=== PATIENT | male | born 1975 | race Caucasian/White ===

== ENCOUNTER → 2016-08-17 | Outpatient (CLI) | payer OTHER ==
[2016-08-17 13:44] LABS: BASO # 0.1 K/mm3 (0.0-0.2); BASO % 1.2 % (0.0-1.0); EOS # 0.2 K/mm3 (0.0-0.50); EOS % 3.8 % (0.0-3.0); LARGE UNSTAINED CELL # 0.1 K/mm3 (0.0-0.4); LARGE UNSTAINED CELL % 2.8 % (0.0-4.0); LYMPH # 1.7 K/mm3 (1.5-4.5); MEAN CORPUSCULAR HGB CONC 35.8 g/dl (32.0-36.5); MEAN CORPUSCULAR VOLUME 92.1 fl (80.0-96.0); MONO # 0.3 K/mm3 (0.0-0.8); MONO % 6.3 % (0.0-5.0); NEUTROPHILS # 2.4 K/mm3 (1.8-7.7); NEUTROPHILS % 50.9 % (36.0-66.0); PLATELET COUNT, AUTOMATED 199 k/mm3 (150-450); RED CELL DISTRIBUTION WIDTH 12.5 % (11.5-14.5); WHITE BLOOD COUNT 4.8 K/mm3 (4.0-10.0)
[2016-08-17 14:00] LABS: VITAMIN B12 LEVEL 437 PG/ML (247-911)
[2016-08-17 14:26] LABS: ALBUMIN/GLOBULIN RATIO 1.33 (1.00-1.93); ALKALINE PHOSPHATASE 53 U/L (45-117); ALT/SGPT 25 U/L (12-78); ANION GAP 7 MEQ/L (8-16); AST/SGOT 20 U/L (15-37); BLOOD UREA NITROGEN 20 MG/DL (7-18); CALCIUM LEVEL 8.7 MG/DL (8.5-10.1); CARBON DIOXIDE LEVEL 28 MEQ/L (21-32); CHLORIDE LEVEL 107 MEQ/L (98-107); CREATININE FOR GFR 1.06 MG/DL (0.70-1.30); FERRITIN 36 NG/ML (26-388); GLOMERULAR FILTRATION RATE > 60.0 (>60); GLUCOSE, FASTING 103 MG/DL (70-105); PERCENT SATURATION 34.9 % (19.7-37.4); SODIUM LEVEL 142 MEQ/L (136-145); TOTAL IRON BINDING CAPACITY 278 UG/DL (250-450)
== END ==
LOC: M WUC 09:11
PROVIDERS: ATTEND Family Medicine
DX: D72.819 Decreased white blood cell count, unspecified (principal); K27.9 Peptic ulcer, site unspecified, unspecified as acute or chronic, without hemorrhage or perforation; I10 Essential (primary) hypertension

== ENCOUNTER → 2017-05-06 | Outpatient (CLI) | payer OTHER ==
[2017-05-06 16:19] LABS: BASO # 0.1 10^3/uL (0.0-0.2); BASO % 1.1 % (0.0-1.0); EOS # 0.2 10^3/uL (0.0-0.50); EOS % 2.6 % (0.0-3.0); HEMATOCRIT 41.5 % (42.0-52.0); HEMOGLOBIN 14.4 g/dl (14.0-18.0); IMMATURE GRANULOCYTE % 0.5 % (0-3.0); LYMPH # 1.8 10^3/uL (1.5-4.5); LYMPH % 29.7 % (24.0-44.0); MEAN CORPUSCULAR HEMOGLOBIN 31.5 pg (27.0-33.0); MEAN CORPUSCULAR HGB CONC 34.7 g/dl (32.0-36.5); MEAN CORPUSCULAR VOLUME 90.8 fl (80.0-96.0); MONO # 0.5 10^3/uL (0.0-0.8); MONO % 7.6 % (0.0-5.0); NEUTROPHILS # 3.6 10^3/uL (1.8-7.7); NEUTROPHILS % 58.5 % (36.0-66.0); PLATELET COUNT, AUTOMATED 206 10^3/uL (150-450); RED BLOOD COUNT 4.57 10^6/uL (4.30-6.10); RED CELL DISTRIBUTION WIDTH 12.4 % (11.5-14.5); WHITE BLOOD COUNT 6.2 10^3/uL (4.0-10.0)
[2017-05-06 16:31] LABS: ALBUMIN 4.2 GM/DL (3.2-5.2); ALBUMIN/GLOBULIN RATIO 1.35 (1.00-1.93); ALKALINE PHOSPHATASE 49 U/L (45-117); ALT/SGPT 20 U/L (12-78); ANION GAP 5 MEQ/L (8-16); AST/SGOT 17 U/L (7-37); BLOOD UREA NITROGEN 16 MG/DL (7-18); C REACTIVE PROTEIN QUANTITATIV < 0.30 MG/DL (0.00-0.30); CALCIUM LEVEL 8.8 MG/DL (8.5-10.1); CARBON DIOXIDE LEVEL 31 MEQ/L (21-32); CHLORIDE LEVEL 104 MEQ/L (98-107); CHOLESTEROL LEVEL 156 MG/DL (<200); CHOLESTEROL RISK RATIO 2.476 (<5); CREATININE FOR GFR 0.89 MG/DL (0.70-1.30); GLOMERULAR FILTRATION RATE > 60.0 (>60); GLUCOSE, FASTING 88 MG/DL (70-100); HDL CHOLESTEROL 63 MG/DL (>40); LDL CHOLESTEROL 82.2 MG/DL (<100); NON-HDL-C 93 MG/DL; POTASSIUM SERUM 4.8 MEQ/L (3.5-5.1); SODIUM LEVEL 140 MEQ/L (136-145); TOTAL PROTEIN 7.3 GM/DL (6.4-8.2); TRIGLYCERIDES LEVEL 54 MG/DL (<150)
[2017-05-06 16:40] LABS: PTH INTACT 29.1 PG/ML (18.5-88.0); TOTAL 25(OH) VITAMIN D 57.2 NG/ML (30.0-100.0)
== END ==
LOC: M WUC 12:13
DX: D72.819 Decreased white blood cell count, unspecified (principal); E55.9 Vitamin D deficiency, unspecified

== ENCOUNTER → 2017-10-10 | Outpatient (CLI) | payer OTHER | LOC: M RAD 16:16 | DX: N50.3 Cyst of epididymis (principal); N43.3 Hydrocele, unspecified | CPT/HCPCS: 76870 ==

== ENCOUNTER → 2018-01-20 | Outpatient (CLI) | payer OTHER ==
[2018-01-20 12:43] LABS: APPEARANCE, URINE CLEAR (CLEAR); BACTERIA, URINE AUTO NEGATIVE (NEGATIVE); BILIRUBIN, URINE AUTO NEGATIVE (NEGATIVE); BLOOD, URINE BLOOD NEGATIVE (NEGATIVE); COLOR, URINE YELLOW (YELLOW); GLUCOSE, URINE (UA) AUTO NEGATIVE (NEGATIVE); KETONE, URINE AUTO NEGATIVE (NEGATIVE); LEUKOCYTE ESTERASE, URINE AUTO NEGATIVE (NEGATIVE); NITRITE, URINE AUTO NEGATIVE (NEGATIVE); PROTEIN, URINE AUTO NEGATIVE (NEGATIVE); RBC, URINE AUTO 0 /HPF (0-3); SPECIFIC GRAVITY URINE AUTO 1.021 (1.002-1.035); SQUAMOUS EPITHELIAL CELL UR AU 0 /HPF (0-6); UROBILINOGEN, URINE AUTO 0.2 mg/dL (0.0-2.0); WBC, URINE AUTO 1 /HPF (0-3)
[2018-01-20 13:01] LABS: ALBUMIN 4.3 GM/DL (3.2-5.2); ALBUMIN/GLOBULIN RATIO 1.43 (1.00-1.93); ALKALINE PHOSPHATASE 50 U/L (45-117); ALT/SGPT 27 U/L (12-78); ANION GAP 6 MEQ/L (8-16); AST/SGOT 21 U/L (7-37); BLOOD UREA NITROGEN 18 MG/DL (7-18); CALCIUM LEVEL 9.1 MG/DL (8.5-10.1); CARBON DIOXIDE LEVEL 31 MEQ/L (21-32); CHLORIDE LEVEL 104 MEQ/L (98-107); CHOLESTEROL LEVEL 160 MG/DL (<200); CHOLESTEROL RISK RATIO 2.909 (<5); CREATININE FOR GFR 1.12 MG/DL (0.70-1.30); FREE T4 0.98 NG/DL (0.76-1.46); GLOMERULAR FILTRATION RATE > 60.0 (>60); GLUCOSE, FASTING 89 MG/DL (70-100); HDL CHOLESTEROL 55 MG/DL (>40); LDL CHOLESTEROL 97 MG/DL (<100); NON-HDL-C 105 MG/DL; POTASSIUM SERUM 4.8 MEQ/L (3.5-5.1); SODIUM LEVEL 141 MEQ/L (136-145); TOTAL PROTEIN 7.3 GM/DL (6.4-8.2); TRIGLYCERIDES LEVEL 39 MG/DL (<150)
[2018-01-20 13:02] LABS: BASO # 0.1 10^3/uL (0.0-0.2); BASO % 1.8 % (0.0-1.0); EOS # 0.5 10^3/uL (0.0-0.50); EOS % 9.1 % (0.0-3.0); HEMATOCRIT 42.3 % (42.0-52.0); HEMOGLOBIN 14.9 g/dl (13.5-17.5); IMMATURE GRANULOCYTE % 0.4 % (0-3.0); LYMPH # 1.3 10^3/uL (1.5-4.5); LYMPH % 25.5 % (24.0-44.0); MEAN CORPUSCULAR HEMOGLOBIN 31.4 pg (27.0-33.0); MEAN CORPUSCULAR HGB CONC 35.2 g/dl (32.0-36.5); MEAN CORPUSCULAR VOLUME 89.1 fl (80.0-96.0); MONO # 0.4 10^3/uL (0.0-0.8); MONO % 7.7 % (0.0-5.0); NEUTROPHILS # 2.8 10^3/uL (1.8-7.7); NEUTROPHILS % 55.5 % (36.0-66.0); PLATELET COUNT, AUTOMATED 227 10^3/uL (150-450); RED BLOOD COUNT 4.75 10^6/uL (4.30-6.10); RED CELL DISTRIBUTION WIDTH 12.2 % (11.5-14.5); WHITE BLOOD COUNT 5.1 10^3/uL (4.0-10.0)
[2018-01-20 13:43] LABS: MALB URINE SIEMENS 21.1 MG/L; MAU/CREAT RATIO 9.3 MCG/MG (0.0-30.0)
[2018-01-24 00:06] LABS: QuantiFERON-TB Gold Plus Negative (Negative)
== END ==
LOC: M WUC 09:37
DX: D72.819 Decreased white blood cell count, unspecified (principal); I10 Essential (primary) hypertension; E78.5 Hyperlipidemia, unspecified; R76.11 Nonspecific reaction to tuberculin skin test without active tuberculosis
CPT/HCPCS: 84443

== ENCOUNTER → 2018-09-26 | Outpatient (CLI) | payer OTHER ==
[2018-09-26 13:32] LABS: BASO # 0.1 10^3/uL (0.0-0.2); BASO % 1.5 % (0.0-1.0); EOS # 0.4 10^3/uL (0.0-0.50); EOS % 6.8 % (0.0-3.0); HEMOGLOBIN 14.1 g/dl (13.5-17.5); LYMPH # 2.1 10^3/uL (1.5-4.5); LYMPH % 37.6 % (24.0-44.0); MEAN CORPUSCULAR HEMOGLOBIN 31.5 pg (27.0-33.0); MEAN CORPUSCULAR HGB CONC 35.3 g/dl (32.0-36.5); MEAN CORPUSCULAR VOLUME 89.3 fl (80.0-96.0); MONO # 0.5 10^3/uL (0.0-0.8); MONO % 8.4 % (0.0-5.0); NEUTROPHILS # 2.5 10^3/uL (1.8-7.7); NEUTROPHILS % 45.5 % (36.0-66.0); PLATELET COUNT, AUTOMATED 215 10^3/uL (150-450); RED BLOOD COUNT 4.48 10^6/uL (4.30-6.10); WHITE BLOOD COUNT 5.5 10^3/uL (4.0-10.0)
[2018-09-26 13:39] LABS: ALBUMIN 3.9 GM/DL (3.2-5.2); ALT/SGPT 24 U/L (12-78); BILIRUBIN,TOTAL 0.5 MG/DL (0.2-1.0); BLOOD UREA NITROGEN 19 MG/DL (7-18); CALCIUM LEVEL 8.8 MG/DL (8.5-10.1); CARBON DIOXIDE LEVEL 30 MEQ/L (21-32); CHLORIDE LEVEL 107 MEQ/L (98-107); CHOLESTEROL LEVEL 157 MG/DL (<200); CHOLESTEROL RISK RATIO 3.078 (<5); GLOMERULAR FILTRATION RATE > 60.0 (>60); GLUCOSE, FASTING 96 MG/DL (70-100); HDL CHOLESTEROL 51 MG/DL (>40); LDL CHOLESTEROL 92 MG/DL (<100); NON-HDL-C 106 MG/DL; POTASSIUM SERUM 4.5 MEQ/L (3.5-5.1); SODIUM LEVEL 142 MEQ/L (136-145); TRIGLYCERIDES LEVEL 69 MG/DL (<150)
[2018-09-26 14:25] LABS: HEMOGLOBIN A1c 5.4 %
== END ==
LOC: M WUC 08:27
PROVIDERS: ATTEND Family Medicine
DX: D72.819 Decreased white blood cell count, unspecified (principal); E78.5 Hyperlipidemia, unspecified; I10 Essential (primary) hypertension

== ENCOUNTER → 2018-11-11 | Outpatient (CLI) | payer OTHER ==
--- NOTE | 2018-11-11 12:20 | REP ---
Right thumb series: Four views. History: Hyperextension injury. Findings: Four views of the right thumb demonstrate a fracture of the distal phalanx which appears to extend to the IP joint. No displacement. There is associated swelling. Impression: Distal phalangeal fracture right thumb. Electronically Signed by John Martines MD 11/11/2018 12:11 P
== END ==
LOC: M WUC 10:38
PROVIDERS: ATTEND Physician Assistant
DX: S62.524A Nondisplaced fracture of distal phalanx of right thumb, initial encounter for closed fracture (principal); X58.XXXA Exposure to other specified factors, initial encounter; Y92.9 Unspecified place or not applicable

== ENCOUNTER 2019-07-04 09:50 | Emergency (ER) | payer OTHER ==
[~2019-07-04] VITALS: Ht 170.2 cm; Wt 77.7 kg
[2019-07-04] MEDS ORDERED: LISI10TA4 (09:55)
[2019-07-04] MEDS ORDERED: OMEP-221 (09:55)
[2019-07-04 10:13] LABS: BASO # 0.1 10^3/uL (0.0-0.2); EOS # 0.2 10^3/uL (0.0-0.5); EOS % 2.8 % (0.0-3.0); HEMATOCRIT 45.4 % (42.0-52.0); HEMOGLOBIN 15.6 g/dl (13.5-17.5); LYMPH # 2.2 10^3/uL (1.5-5.0); LYMPH % 29.7 % (24.0-44.0); MEAN CORPUSCULAR HGB CONC 34.4 g/dl (32.0-36.5); MEAN CORPUSCULAR VOLUME 90.3 fl (80.0-96.0); MONO # 0.6 10^3/uL (0.0-0.8); NEUTROPHILS # 4.2 10^3/uL (1.5-8.5); NEUTROPHILS % 58.4 % (36.0-66.0); PLATELET COUNT, AUTOMATED 215 10^3/uL (150-450); RED BLOOD COUNT 5.03 10^6/uL (4.30-6.10); WHITE BLOOD COUNT 7.2 10^3/uL (4.0-10.0)
[2019-07-04] MEDS ORDERED: GI COCKTAIL 50ML BTL(HYOSCYAMINE/MAALOX/LIDOCAINE VISCOUS)(1:3:1) PO ONE (10:30)
[2019-07-04] MEDS ORDERED: ASPIRIN 325 MG TAB PO ONE (10:30)
[2019-07-04 10:54] LABS: ALBUMIN 4.4 GM/DL (3.2-5.2); ALT/SGPT 26 U/L (12-78); BILIRUBIN,DIRECT 0.2 MG/DL (0.0-0.2); BILIRUBIN,TOTAL 0.9 MG/DL (0.2-1.0); BLOOD UREA NITROGEN 22 MG/DL (7-18); CALCIUM LEVEL 9.2 MG/DL (8.5-10.1); CARBON DIOXIDE LEVEL 28 MEQ/L (21-32); CHLORIDE LEVEL 103 MEQ/L (98-107); CK-MB VALUE MASS 2.6 NG/ML (<3.6); CPK CREATINE PHOSPHOKINASE 185 U/L (39-308); CREATININE FOR GFR 1.07 MG/DL (0.70-1.30); GLOMERULAR FILTRATION RATE > 60.0 (>60); GLUCOSE, FASTING 88 MG/DL (70-100); MB/CK RELATIVE INDEX 1.41 (< OR =4); POTASSIUM SERUM 4.1 MEQ/L (3.5-5.1); SODIUM LEVEL 138 MEQ/L (136-145); TOTAL PROTEIN 7.8 GM/DL (6.4-8.2); TROPONIN I < 0.02 NG/ML (< 0.10)
--- NOTE | 2019-07-04 11:04 | REP ---
Clinical: Chest pain . Comparison: 05/06/2017 . Findings: The mediastinum and cardiac silhouette are stable and within normal limits for portable technique. The lung dunlap are clear without acute consolidation, effusion, or pneumothorax. Skeletal structures are intact. Impression: No acute cardiopulmonary process appreciated. Electronically Signed by Tanner Jung MD 07/04/2019 10:57 A
[2019-07-04] MEDS ORDERED: ISOVUE-370 76% 100ML VIAL As Ordered ONE (11:18)
--- NOTE | 2019-07-04 11:50 | REP ---
Clinical: Acute chest pain. Technique: Axial contrast enhanced images from the thoracic inlet to the upper abdomen using 75 ml Isovue 370 intravenous contrast material with coronal and sagittal re-formations. Findings: Satisfactory enhancement of the pulmonary vasculature is achieved and no filling defects are identified to suggest pulmonary embolus. Thoracic aorta is normal caliber without aneurysm or dissection. Heart and pericardium are normal. Bilateral lung dulnap are well aerated and clear without acute pulmonary parenchymal consolidation or atelectasis. No nodule or mass lesion. No pleural effusion/reaction. No pneumothorax. No adenopathy. Impression: No evidence for pulmonary embolus. No acute pleuroparenchymal or mediastinal process. Electronically Signed by Tanner Jung MD 07/04/2019 11:41 A
[2019-07-04 15:53] LABS: CK-MB VALUE MASS 1.6 NG/ML (<3.6); CPK CREATINE PHOSPHOKINASE 144 U/L (39-308); MB/CK RELATIVE INDEX 1.11 (< OR =4); TROPONIN I < 0.02 NG/ML (< 0.10)
[2019-07-04 16:07] VITALS: BP 115/60
--- NOTE | 2019-07-04 19:30 | ECGEPIP ---
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
--- NOTE | 2019-07-05 06:27 | ECGEPIP ---
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
== END 2019-07-04 16:09 | disposition home or self-care (01) ==
LOC: M ED 09:50
DX: R07.89 Other chest pain (principal); I10 Essential (primary) hypertension; Z88.8 Allergy status to other drugs, medicaments and biological substances
CPT/HCPCS: 71045; 71275; 80048; 80076; 82550; 82553; 84443; 84484; 85025; 93005; 93041; 94760; 99285; Q9967

== ENCOUNTER → 2019-07-25 | Outpatient (CLI) | payer OTHER ==
[~2019-07-25] MED LIST: LISI10TA4; OMEP-221
[2019-07-25 17:43] LABS: ALBUMIN 4.1 GM/DL (3.2-5.2); ALT/SGPT 26 U/L (12-78); BILIRUBIN,TOTAL 0.8 MG/DL (0.2-1.0); BLOOD UREA NITROGEN 17 MG/DL (7-18); CALCIUM LEVEL 8.9 MG/DL (8.5-10.1); CARBON DIOXIDE LEVEL 29 MEQ/L (21-32); CHLORIDE LEVEL 105 MEQ/L (98-107); CREATININE FOR GFR 0.95 MG/DL (0.70-1.30); GLOMERULAR FILTRATION RATE > 60.0 (>60); GLUCOSE, FASTING 84 MG/DL (70-100); POTASSIUM SERUM 4.5 MEQ/L (3.5-5.1); SODIUM LEVEL 142 MEQ/L (136-145); TOTAL PROTEIN 7.3 GM/DL (6.4-8.2)
[2019-07-25 17:57] LABS: HEMOGLOBIN A1c 5.5 %
[2019-07-28 10:13] LABS: PTH INTACT 39.7 PG/ML (18.5-88.0)
[2019-07-29 13:07] LABS: H PYLORI SERUM QUANT IgG ABY 0.51 (0.00-0.79); INSULIN LEVEL 4.3 uIU/mL (2.6-24.9)
== END ==
LOC: M WUC 10:02
PROVIDERS: ATTEND Family Medicine
DX: I10 Essential (primary) hypertension (principal); E55.9 Vitamin D deficiency, unspecified; R76.11 Nonspecific reaction to tuberculin skin test without active tuberculosis

== ENCOUNTER → 2020-03-05 | Outpatient (CLI) | payer OTHER ==
[2020-03-05 18:38] LABS: BASO # 0.1 10^3/uL (0.0-0.2); BASO % 1.8 % (0.0-1.0); EOS # 0.2 10^3/uL (0.0-0.5); EOS % 3.3 % (0.0-3.0); HEMATOCRIT 43.3 % (42.0-52.0); HEMOGLOBIN 14.7 g/dl (13.5-17.5); LYMPH # 1.8 10^3/uL (1.5-5.0); LYMPH % 35.7 % (24.0-44.0); MEAN CORPUSCULAR HEMOGLOBIN 31.1 pg (27.0-33.0); MEAN CORPUSCULAR HGB CONC 33.9 g/dl (32.0-36.5); MEAN CORPUSCULAR VOLUME 91.7 fl (80.0-96.0); MONO # 0.4 10^3/uL (0.0-0.8); MONO % 7.8 % (0.0-5.0); NEUTROPHILS # 2.6 10^3/uL (1.5-8.5); NEUTROPHILS % 51.2 % (36.0-66.0); PLATELET COUNT, AUTOMATED 209 10^3/uL (150-450); RED BLOOD COUNT 4.72 10^6/uL (4.30-6.10); WHITE BLOOD COUNT 5.1 10^3/uL (4.0-10.0)
[2020-03-05 18:51] LABS: ALBUMIN 4.3 GM/DL (3.2-5.2); ALT/SGPT 18 U/L (12-78); BILIRUBIN,TOTAL 1.1 MG/DL (0.2-1.0); BLOOD UREA NITROGEN 16 MG/DL (7-18); CALCIUM LEVEL 9.1 MG/DL (8.5-10.1); CARBON DIOXIDE LEVEL 31 MEQ/L (21-32); CHLORIDE LEVEL 103 MEQ/L (98-107); CHOLESTEROL LEVEL 184 MG/DL (<200); CHOLESTEROL RISK RATIO 2.875 (<5); CREATININE FOR GFR 0.99 MG/DL (0.70-1.30); FREE T4 0.97 NG/DL (0.76-1.46); GLOMERULAR FILTRATION RATE > 60.0 (>60); GLUCOSE, FASTING 79 MG/DL (70-100); HDL CHOLESTEROL 64 MG/DL (>40); LDL CHOLESTEROL 108 MG/DL (<100); NON-HDL-C 120 MG/DL; POTASSIUM SERUM 4.5 MEQ/L (3.5-5.1); SODIUM LEVEL 139 MEQ/L (136-145); TOTAL PROTEIN 7.5 GM/DL (6.4-8.2); TRIGLYCERIDES LEVEL 60 MG/DL (<150)
== END ==
LOC: M WUC 13:25
PROVIDERS: ATTEND Family Medicine
DX: D72.819 Decreased white blood cell count, unspecified (principal); E78.5 Hyperlipidemia, unspecified; I10 Essential (primary) hypertension

== ENCOUNTER → 2021-06-19 | Outpatient (CLI) | payer OTHER ==
[~2021-06-19] MED LIST changes: +LISI10TA22; -LISI10TA4; -OMEP-221; +OMEP40CA5
[2021-06-19 13:03] LABS: HEMOGLOBIN A1c 5.2 %
[2021-06-19 13:06] LABS: ALBUMIN 4.1 GM/DL (3.2-5.2); ALT/SGPT 41 U/L (12-78); BILIRUBIN,DIRECT 0.2 MG/DL (0.0-0.2); BILIRUBIN,TOTAL 0.9 MG/DL (0.2-1.0); BLOOD UREA NITROGEN 20 MG/DL (7-18); CALCIUM LEVEL 8.8 MG/DL (8.5-10.1); CARBON DIOXIDE LEVEL 29 MEQ/L (21-32); CHLORIDE LEVEL 105 MEQ/L (98-107); CREATININE FOR GFR 1.17 MG/DL (0.70-1.30); FERRITIN 26 NG/ML (26-388); GLOMERULAR FILTRATION RATE > 60.0 (>60); GLUCOSE, FASTING 99 MG/DL (70-100); NT-PRO BNP 9 PG/ML (<125); POTASSIUM SERUM 4.4 MEQ/L (3.5-5.1); SODIUM LEVEL 139 MEQ/L (136-145); TOTAL PROTEIN 7.2 GM/DL (6.4-8.2)
[2021-06-19 13:07] LABS: PTH INTACT 32.3 PG/ML (18.5-88.0); TOTAL 25(OH) VITAMIN D 33.1 NG/ML (30.0-100.0)
== END ==
LOC: M WUC 09:14
PROVIDERS: ATTEND Family Medicine
DX: E78.5 Hyperlipidemia, unspecified (principal); E55.9 Vitamin D deficiency, unspecified; I10 Essential (primary) hypertension; K27.9 Peptic ulcer, site unspecified, unspecified as acute or chronic, without hemorrhage or perforation; E80.4 Gilbert syndrome

== ENCOUNTER → 2021-11-28 | Outpatient (CLI) | payer OTHER ==
[~2021-11-28] MED LIST changes: +ANUS2.5C2 TOP
[2021-11-28 11:22] LABS: BASO # 0.1 10^3/uL (0.0-0.2); BASO % 1.7 % (0.0-1.0); EOS # 0.3 10^3/uL (0.0-0.5); EOS % 6.2 % (0.0-3.0); HEMATOCRIT 43.4 % (42.0-52.0); HEMOGLOBIN 15.2 g/dl (13.5-17.5); LYMPH # 1.8 10^3/uL (1.5-5.0); LYMPH % 33.3 % (24.0-44.0); MEAN CORPUSCULAR HEMOGLOBIN 32.1 pg (27.0-33.0); MEAN CORPUSCULAR VOLUME 91.6 fl (80.0-96.0); MONO # 0.4 10^3/uL (0.0-0.8); MONO % 8.2 % (2.0-8.0); NEUTROPHILS # 2.7 10^3/uL (1.5-8.5); NEUTROPHILS % 50.4 % (36.0-66.0); PLATELET COUNT, AUTOMATED 231 10^3/uL (150-450); RED BLOOD COUNT 4.74 10^6/uL (4.30-6.10); WHITE BLOOD COUNT 5.3 10^3/uL (4.0-10.0)
[2021-11-28 11:39] LABS: ALBUMIN 4.2 GM/DL (3.2-5.2); ALT/SGPT 26 U/L (12-78); BILIRUBIN,TOTAL 0.9 MG/DL (0.2-1.0); BLOOD UREA NITROGEN 21 MG/DL (7-18); CALCIUM LEVEL 9.2 MG/DL (8.5-10.1); CARBON DIOXIDE LEVEL 31 MEQ/L (21-32); CHLORIDE LEVEL 103 MEQ/L (98-107); CHOLESTEROL LEVEL 173 MG/DL (<200); CHOLESTEROL RISK RATIO 2.932 (<5); CREATININE FOR GFR 1.04 MG/DL (0.70-1.30); GLOMERULAR FILTRATION RATE > 60.0 (>60); GLUCOSE, FASTING 94 MG/DL (70-100); HDL CHOLESTEROL 59 MG/DL (>40); LDL CHOLESTEROL 104 MG/DL (<100); NON-HDL-C 114 MG/DL; POTASSIUM SERUM 4.5 MEQ/L (3.5-5.1); SODIUM LEVEL 137 MEQ/L (136-145); TOTAL PROTEIN 7.7 GM/DL (6.4-8.2); TRIGLYCERIDES LEVEL 50 MG/DL (<150)
[2021-11-29 08:10] LABS: APOLIPOPROTEIN B/A-1 RATIO 0.6 ratio (0.0-0.7)
== END ==
LOC: M WUC 08:52
PROVIDERS: ATTEND Family Medicine
DX: I10 Essential (primary) hypertension (principal); E78.5 Hyperlipidemia, unspecified

== ENCOUNTER → 2022-05-22 | Outpatient (CLI) | payer OTHER ==
[2022-05-22 12:55] LABS: BASO # 0.1 10^3/uL (0.0-0.2); BASO % 1.4 % (0.0-1.0); EOS # 0.3 10^3/uL (0.0-0.5); EOS % 5.9 % (0.0-3.0); HEMATOCRIT 45.3 % (42.0-52.0); HEMOGLOBIN 15.4 g/dl (13.5-17.5); LYMPH # 1.9 10^3/uL (1.5-5.0); LYMPH % 32.4 % (24.0-44.0); MEAN CORPUSCULAR HEMOGLOBIN 31.4 pg (27.0-33.0); MEAN CORPUSCULAR VOLUME 92.4 fl (80.0-96.0); MONO # 0.5 10^3/uL (0.0-0.8); MONO % 8.3 % (2.0-8.0); NEUTROPHILS % 51.7 % (36.0-66.0); PLATELET COUNT, AUTOMATED 231 10^3/uL (150-450); WHITE BLOOD COUNT 5.8 10^3/uL (4.0-10.0)
[2022-05-22 13:01] LABS: HEMATOCRIT 44.7 % (42.0-52.0)
[2022-05-22 13:17] LABS: TOTAL PROTEIN,RANDOM URINE 8.4 MG/DL (0.0-14.0)
[2022-05-22 13:22] LABS: CREATININE,RANDOM URINE 117.5 MG/DL
[2022-05-22 13:31] LABS: ALBUMIN 4.3 G/DL (3.2-5.2); ALKALINE PHOSPHATASE 50 U/L (46-116); ALT/SGPT 21 U/L (7.0-40); AST/SGOT 22 U/L (<34); BILIRUBIN,TOTAL 0.9 MG/DL (0.3-1.2); BLOOD UREA NITROGEN 19 MG/DL (9-23); CALCIUM LEVEL 9.3 MG/DL (8.5-10.1); CARBON DIOXIDE LEVEL 30 MMOL/L (20-31); CHLORIDE LEVEL 102 MMOL/L (98-107); GLOMERULAR FILTRATION RATE > 60.0 (>60); GLUCOSE, FASTING 82 MG/DL (60-100); POTASSIUM SERUM 4.5 MMOL/L (3.5-5.1); PTH INTACT 30.4 PG/ML (18.5-88.0); SODIUM LEVEL 139 MMOL/L (136-145); TOTAL PROTEIN 7.2 G/DL (5.7-8.2); VITAMIN B12 LEVEL 444 PG/ML (211-911)
[2022-05-22 13:32] LABS: TOTAL 25(OH) VITAMIN D 44.8 NG/ML (20.0-100.0)
== END ==
LOC: M WUC 08:27
PROVIDERS: ATTEND Family Medicine
DX: I10 Essential (primary) hypertension (principal); E55.9 Vitamin D deficiency, unspecified; K27.9 Peptic ulcer, site unspecified, unspecified as acute or chronic, without hemorrhage or perforation

== ENCOUNTER → 2022-08-17 | Outpatient (CLI) | payer OTHER ==
[~2022-08-17] MED LIST changes: -LISI10TA22; +LISI10TA22 PO; -OMEP40CA5; +OMEP40CA5 PO; +VITA100093 PO
[2022-08-17 11:28] LABS: BLOOD UREA NITROGEN 16 MG/DL (9-23); CALCIUM LEVEL 9.4 MG/DL (8.5-10.1); CARBON DIOXIDE LEVEL 29 MMOL/L (20-31); CHLORIDE LEVEL 104 MMOL/L (98-107); GLOMERULAR FILTRATION RATE > 60.0 (>60); GLUCOSE, FASTING 95 MG/DL (60-100); POTASSIUM SERUM 4.7 MMOL/L (3.5-5.1); SODIUM LEVEL 139 MMOL/L (136-145)
== END ==
LOC: M EKG 10:19
PROVIDERS: ATTEND Anesthesiology
DX: Z01.818 Encounter for other preprocedural examination (principal)

== ENCOUNTER 2022-08-27 12:17 | Day surgery (SDC) | payer OTHER ==
[~2022-08-27] VITALS: Ht 172.7 cm; Wt 81.6 kg
[~2022-08-27 12:17] MED LIST changes: +ceFAZolin SOD 2 GM in IV 1 EA IV ONE
[2022-08-27] MEDS ORDERED: LR 1,000 ML IV SCH ×2 (12:35→17:55)
[2022-08-27] MEDS ORDERED: ROCURONIUM BROMIDE 50MG/5ML VIAL As Ordered ONE (15:21)
[2022-08-27] MEDS ORDERED: LIDOCAINE 2% 100MG/5ML SDV (FOR ANES.) As Ordered ONE (15:21)
[2022-08-27] MEDS ORDERED: ACETAMINOPHEN 1000MG 100ML IV BAG As Ordered ONE (15:21)
[2022-08-27] MEDS ORDERED: KETOROLAC 60MG 2ML VIAL As Ordered ONE (15:21)
[2022-08-27] MEDS ORDERED: SUGAMMADEX SODIUM 500 MG/5 ML VIAL (BRIDION) As Ordered ONE (15:21)
[2022-08-27] MEDS ORDERED: propofoL 200 MG/20 ML VIAL As Ordered ONE (15:21)
[2022-08-27] MEDS ORDERED: ONDANSETRON 4MG 2ML VIAL As Ordered ONE (15:21)
[2022-08-27] MEDS ORDERED: fentaNYL 100 MCG/2 ML INJECTION As Ordered ONE ×2 (15:22→17:38)
[2022-08-27] MEDS ORDERED: MIDAZOLAM INJ 2MG/2ML VIAL As Ordered ONE (15:22)
[2022-08-27] MEDS ORDERED: SCOPOLAMINE 1MG TRANSDERMAL PATCH As Ordered ONE (16:23)
[2022-08-27] MEDS ORDERED: hydrALAZINE 20MG/ML 1ML VIAL As Ordered ONE (17:11)
[2022-08-27] MEDS ORDERED: oxyCODONE 5MG TAB PO PRN (17:55)
[2022-08-27] MEDS ORDERED: fentaNYL 100 MCG/2 ML INJECTION IV PRN (17:55)
[2022-08-27] MEDS ORDERED: HYDROMORPHONE HCL 0.5 MG/ 0.5 ML SYRINGE IV PRN (17:55)
[2022-08-27] MEDS ORDERED: ONDANSETRON 4MG 2ML VIAL IV PRN (17:55)
[2022-08-27] MEDS ORDERED: NORCO, ANEXSIA 5/325MG TABLET (HYDROcodone/ACETAMINOPHEN) PO PRN (18:10)
[2022-08-27] MEDS ORDERED: METOCLOPRAMIDE INJ 10MG/2ML VIAL IV PRN (18:10)
[2022-08-27] MEDS: PROMETHAZINE 25MG/ML 1ML VIAL IV PRN ×2 (18:20→18:30)
[2022-08-27] MEDS ORDERED: HALOPERIDOL 5MG/ML 1ML VIAL As Ordered ONE (18:47)
[2022-08-27] MEDS ORDERED: diphenhydrAMINE 50MG/ML VIAL IV PRN (19:15)
[2022-08-27] MEDS ORDERED: diphenhydrAMINE 50MG/ML VIAL As Ordered ONE (19:16)
[2022-08-27 22:35] VITALS: BP 135/83; TEMP 97.8; O2SAT 97
== END 2022-08-27 22:38 | disposition home or self-care (01) ==
LOC: M SDC 12:17
PROVIDERS: ATTEND Surgery
DX: K40.30 Unilateral inguinal hernia, with obstruction, without gangrene, not specified as recurrent (principal); I10 Essential (primary) hypertension; Z79.899 Other long term (current) drug therapy; Z88.8 Allergy status to other drugs, medicaments and biological substances; K21.9 Gastro-esophageal reflux disease without esophagitis
CPT/HCPCS: 49650; C1781; J0131; J0360; J1100; J1200; J1885; J2250; J2405; J2550; J2765; J3010; S0020; S2900

== ENCOUNTER → 2023-08-08 | Outpatient (CLI) | payer OTHER ==
[~2023-08-08] MED LIST changes: -ceFAZolin SOD 2 GM in IV 1 EA IV ONE
[2023-08-08 10:17] LABS: BASO # 0.1 10^3/uL (0.0-0.2); BASO % 1.6 % (0.0-1.0); EOS # 0.2 10^3/uL (0.0-0.5); HEMATOCRIT 40.8 % (42.0-52.0); HEMOGLOBIN 14.3 g/dl (13.5-17.5); LYMPH # 1.9 10^3/uL (1.5-5.0); LYMPH % 38.7 % (24.0-44.0); MEAN CORPUSCULAR HEMOGLOBIN 31.3 pg (27.0-33.0); MEAN CORPUSCULAR VOLUME 89.3 fl (80.0-96.0); MONO # 0.5 10^3/uL (0.0-0.8); MONO % 9.2 % (2.0-8.0); NEUTROPHILS # 2.4 10^3/uL (1.5-8.5); NEUTROPHILS % 47.3 % (36.0-66.0); PLATELET COUNT, AUTOMATED 209 10^3/uL (150-450); RED BLOOD COUNT 4.57 10^6/uL (4.30-6.10)
[2023-08-08 10:30] LABS: ALBUMIN 3.9 G/DL (3.2-5.2); ALKALINE PHOSPHATASE 54 U/L (46-116); ALT/SGPT 21 U/L (7.0-40); AST/SGOT 16 U/L (<34); BILIRUBIN,TOTAL 0.8 MG/DL (0.3-1.2); BLOOD UREA NITROGEN 19 MG/DL (9-23); CARBON DIOXIDE LEVEL 30 MMOL/L (20-31); CHLORIDE LEVEL 107 MMOL/L (98-107); CHOLESTEROL LEVEL 155 MG/DL (<200); CREATININE FOR GFR 0.96 MG/DL (0.70-1.30); GLOMERULAR FILTRATION RATE > 60.0 (>60); GLUCOSE, FASTING 102 MG/DL (60-100); LDL CHOLESTEROL 95.4 MG/DL (<100); POTASSIUM SERUM 5.1 MMOL/L (3.5-5.1); PTH INTACT 35.6 PG/ML (18.5-88.0); SODIUM LEVEL 139 MMOL/L (136-145); TOTAL PROTEIN 6.7 G/DL (5.7-8.2); TRIGLYCERIDES LEVEL 48 MG/DL (<150)
[2023-08-08 10:33] LABS: FERRITIN 24.9 NG/ML (10.5-307.3)
[2023-08-08 10:34] LABS: TOTAL 25(OH) VITAMIN D 43.3 NG/ML (20.0-100.0)
== END ==
LOC: M WUC 08:06
PROVIDERS: ATTEND Family Medicine
DX: E78.5 Hyperlipidemia, unspecified (principal); I10 Essential (primary) hypertension; E55.9 Vitamin D deficiency, unspecified

== ENCOUNTER → 2023-08-08 | Outpatient (REF) | payer OTHER | LOC: M SFHCPLAZ 12:40 | PROVIDERS: ATTEND Family Medicine | DX: Z53.9 Procedure and treatment not carried out, unspecified reason (principal) ==

== ENCOUNTER → 2024-01-29 | Outpatient (CLI) | payer OTHER ==
[2024-01-29 11:17] LABS: BASO # 0.1 10^3/uL (0.0-0.2); BASO % 1.8 % (0.0-1.0); EOS # 0.2 10^3/uL (0.0-0.5); EOS % 4.1 % (0.0-3.0); HEMATOCRIT 42.7 % (42.0-52.0); HEMOGLOBIN 14.9 g/dl (13.5-17.5); LYMPH # 1.6 10^3/uL (1.5-5.0); LYMPH % 37.1 % (24.0-44.0); MEAN CORPUSCULAR HEMOGLOBIN 31.8 pg (27.0-33.0); MEAN CORPUSCULAR HGB CONC 34.9 g/dl (32.0-36.5); MONO # 0.4 10^3/uL (0.0-0.8); MONO % 9.5 % (2.0-8.0); NEUTROPHILS # 2.1 10^3/uL (1.5-8.5); NEUTROPHILS % 47.3 % (36.0-66.0); PLATELET COUNT, AUTOMATED 224 10^3/uL (150-450); RED BLOOD COUNT 4.69 10^6/uL (4.30-6.10); WHITE BLOOD COUNT 4.4 10^3/uL (4.0-10.0)
[2024-01-29 11:47] LABS: ALBUMIN 4.1 G/DL (3.2-5.2); ALKALINE PHOSPHATASE 53 U/L (40-129); ALT/SGPT 23 U/L (7.0-40); AST/SGOT 23 U/L (<34); BILIRUBIN,TOTAL 1.1 MG/DL (0.3-1.2); BLOOD UREA NITROGEN 15 MG/DL (9-23); CALCIUM LEVEL 9.5 MG/DL (8.5-10.1); CARBON DIOXIDE LEVEL 31 MMOL/L (20-31); CHLORIDE LEVEL 106 MMOL/L (98-107); CREATININE FOR GFR 0.95 MG/DL (0.70-1.30); GLOMERULAR FILTRATION RATE > 60.0 (>60); GLUCOSE, FASTING 94 MG/DL (60-100); POTASSIUM SERUM 4.4 MMOL/L (3.5-5.1); SODIUM LEVEL 140 MMOL/L (136-145); TOTAL PROTEIN 7.2 G/DL (5.7-8.2)
[2024-01-29 11:49] LABS: FERRITIN 29.3 NG/ML (10.5-307.3)
== END ==
LOC: M WUC 08:45
PROVIDERS: ATTEND Family Medicine
DX: I10 Essential (primary) hypertension (principal)

== ENCOUNTER 2024-03-26 18:40 | Emergency (ER) | payer OTHER ==
[~2024-03-26] VITALS: Ht 172.7 cm; Wt 81.8 kg
[~2024-03-26 18:40] MED LIST changes: +ALBU8.5H INH
[2024-03-26] MEDS: GLUCAGON INJ 1MG VIAL IV STA (20:04)
[2024-03-26] MEDS: NS (Normal Saline) 0.9% 1,000 ML IV ONE (20:04)
[2024-03-26] MEDS: ONDANSETRON 4MG 2ML VIAL IV ONE (20:05)
[2024-03-26] MEDS: ACETAMINOPHEN *IV* 1,000 MG in IV 1 EA IV ONE (21:28)
[2024-03-26 21:47] LABS: BASO # 0.1 10^3/uL (0.0-0.2); BASO % 0.7 % (0.0-1.0); EOS # 0.3 10^3/uL (0.0-0.5); EOS % 2.2 % (0.0-3.0); HEMOGLOBIN 13.8 g/dl (13.5-17.5); LYMPH # 2.3 10^3/uL (1.5-5.0); LYMPH % 17.1 % (24.0-44.0); MEAN CORPUSCULAR HEMOGLOBIN 32.1 pg (27.0-33.0); MEAN CORPUSCULAR HGB CONC 35.4 g/dl (32.0-36.5); MEAN CORPUSCULAR VOLUME 90.7 fl (80.0-96.0); MONO # 0.8 10^3/uL (0.0-0.8); MONO % 5.8 % (2.0-8.0); NEUTROPHILS # 9.9 10^3/uL (1.5-8.5); NEUTROPHILS % 73.8 % (36.0-66.0); PLATELET COUNT, AUTOMATED 203 10^3/uL (150-450); WHITE BLOOD COUNT 13.4 10^3/uL (4.0-10.0)
[2024-03-26 22:11] LABS: BLOOD UREA NITROGEN 18 MG/DL (9-23); CALCIUM LEVEL 8.4 MG/DL (8.5-10.1); CARBON DIOXIDE LEVEL 28 MMOL/L (20-31); CHLORIDE LEVEL 109 MMOL/L (98-107); CREATININE FOR GFR 0.81 MG/DL (0.70-1.30); GLOMERULAR FILTRATION RATE > 60.0 (>60); GLUCOSE, FASTING 130 MG/DL (60-100); POTASSIUM SERUM 4.1 MMOL/L (3.5-5.1); SODIUM LEVEL 142 MMOL/L (136-145)
[2024-03-26] MEDS ORDERED: ISOVUE-370 76% 100ML VIAL As Ordered ONE (22:15)
[2024-03-26] MEDS: MAALOX 30 ML SUSP *UDC PO ONE (23:41)
[2024-03-26] MEDS: LIDOCAINE VISCOUS 2% SOLN 15ML UDC SS ONE (23:42)
[2024-03-27] MEDS ORDERED: PEPC1TAB5 PO (00:27)
[2024-03-27 00:33] VITALS: BP 151/88; TEMP 96.7; O2SAT 99
== END 2024-03-27 00:47 | disposition home or self-care (01) ==
LOC: M ED 18:40
DX: T18.128A Food in esophagus causing other injury, initial encounter (principal); I10 Essential (primary) hypertension; J45.909 Unspecified asthma, uncomplicated; E72.22 Arginosuccinic aciduria; Z88.6 Allergy status to analgesic agent; Z79.52 Long term (current) use of systemic steroids; Z79.811 Long term (current) use of aromatase inhibitors; Z79.899 Other long term (current) drug therapy
CPT/HCPCS: 36415; 70491; 71260; 80048; 85025; 96361; 96365; 96366; 96375; 99284; J0131; J1610; J2405; Q9967

== ENCOUNTER 2024-04-01 09:31 | Day surgery (SDC) | payer OTHER ==
[~2024-04-01] VITALS: Ht 172.7 cm; Wt 77.1 kg
[~2024-04-01 09:31] MED LIST changes: +PEPC1TAB5 PO
[2024-04-01] MEDS ORDERED: fentaNYL 100 MCG/2 ML INJECTION As Ordered ONE (11:30)
[2024-04-01] MEDS ORDERED: LIDOCAINE 2% 100MG/5ML SDV (FOR ANES.) As Ordered ONE (11:31)
[2024-04-01] MEDS ORDERED: propofoL 200 MG/20 ML VIAL As Ordered ONE (11:31)
[2024-04-01] MEDS ORDERED: ONDANSETRON 4MG 2ML VIAL As Ordered ONE (11:48)
[2024-04-01 12:07] VITALS: TEMP 97.5
[2024-04-01 12:23] VITALS: BP 124/75; O2SAT 96
== END 2024-04-01 12:35 | disposition home or self-care (01) ==
LOC: M OPP 09:31
PROVIDERS: ATTEND Internal Medicine Gastroenterology
DX: Z12.11 Encounter for screening for malignant neoplasm of colon (principal); K63.5 Polyp of colon; K64.0 First degree hemorrhoids; D50.9 Iron deficiency anemia, unspecified; Z98.890 Other specified postprocedural states; Z88.6 Allergy status to analgesic agent; Z79.899 Other long term (current) drug therapy; J45.909 Unspecified asthma, uncomplicated
CPT/HCPCS: 43239; 45385; 88305; J2405; J3010

== ENCOUNTER → 2024-06-19 | Outpatient (CLI) | payer OTHER ==
[2024-06-19 14:00] LABS: BASO # 0.1 10^3/uL (0.0-0.2); BASO % 1.3 % (0.0-1.0); EOS # 0.2 10^3/uL (0.0-0.5); EOS % 2.9 % (0.0-3.0); HEMATOCRIT 43.9 % (42.0-52.0); HEMOGLOBIN 15.9 g/dl (13.5-17.5); LYMPH # 2.2 10^3/uL (1.5-5.0); LYMPH % 40.2 % (24.0-44.0); MEAN CORPUSCULAR HEMOGLOBIN 32.7 pg (27.0-33.0); MEAN CORPUSCULAR HGB CONC 36.2 g/dl (32.0-36.5); MEAN CORPUSCULAR VOLUME 90.3 fl (80.0-96.0); MONO # 0.5 10^3/uL (0.0-0.8); MONO % 8.3 % (2.0-8.0); NEUTROPHILS # 2.6 10^3/uL (1.5-8.5); NEUTROPHILS % 46.9 % (36.0-66.0); PLATELET COUNT, AUTOMATED 253 10^3/uL (150-450); RED BLOOD COUNT 4.86 10^6/uL (4.30-6.10); WHITE BLOOD COUNT 5.6 10^3/uL (4.0-10.0)
[2024-06-19 14:01] LABS: C REACTIVE PROTEIN QUANTITATIV < 0.50 MG/DL (<1.0)
[2024-06-19 14:03] LABS: ALBUMIN 4.2 G/DL (3.2-5.2); ALKALINE PHOSPHATASE 51 U/L (40-129); ALT/SGPT 20 U/L (7.0-40); AST/SGOT 21 U/L (<34); BLOOD UREA NITROGEN 20 MG/DL (9-23); CALCIUM LEVEL 9.5 MG/DL (8.5-10.1); CARBON DIOXIDE LEVEL 34 MMOL/L (20-31); CHLORIDE LEVEL 103 MMOL/L (98-107); CHOLESTEROL LEVEL 173 MG/DL (<200); CHOLESTEROL RISK RATIO 3.19 (<5); CREATININE FOR GFR 0.96 MG/DL (0.70-1.30); FERRITIN 21.7 NG/ML (10.5-307.3); GLOMERULAR FILTRATION RATE > 90.0 (>60); GLUCOSE, FASTING 90 MG/DL (60-100); HDL CHOLESTEROL 54.1 MG/DL (>40); LDL CHOLESTEROL 106.9 MG/DL (<100); NON-HDL-C 118.9 MG/DL; POTASSIUM SERUM 5.2 MMOL/L (3.5-5.1); SODIUM LEVEL 140 MMOL/L (136-145); TOTAL PROTEIN 7.3 G/DL (5.7-8.2); TRIGLYCERIDES LEVEL 60 MG/DL (<150)
[2024-06-19 14:18] LABS: HEMOGLOBIN A1c 5.2 % (4.0-6.0)
== END ==
LOC: M WUC 10:00
PROVIDERS: ATTEND Family Medicine
DX: I10 Essential (primary) hypertension (principal); E78.5 Hyperlipidemia, unspecified; E80.4 Gilbert syndrome

== ENCOUNTER → 2025-01-04 | Outpatient (CLI) | payer OTHER ==
[2025-01-04 14:12] LABS: ESTIMATED AVERAGE GLUCOSE 105.0 MG/DL (60-110)
[2025-01-04 14:21] LABS: BASO # 0.1 10^3/uL (0.0-0.2); BASO % 0.8 % (0.0-1.0); EOS # 0.1 10^3/uL (0.0-0.5); EOS % 0.9 % (0.0-3.0); LYMPH # 1.4 10^3/uL (1.5-5.0); LYMPH % 13.7 % (24.0-44.0); MONO # 0.6 10^3/uL (0.0-0.8); MONO % 6.2 % (2.0-8.0); NEUTROPHILS # 8.0 10^3/uL (1.5-8.5); NEUTROPHILS % 77.9 % (36.0-66.0); PLATELET COUNT, AUTOMATED 254 10^3/uL (150-450)
[2025-01-04 14:29] LABS: ALT/SGPT 26 U/L (7.0-40); AST/SGOT 31 U/L (<34); C REACTIVE PROTEIN QUANTITATIV < 0.50 MG/DL (<1.0); CALCIUM LEVEL 9.1 MG/DL (8.5-10.1); CARBON DIOXIDE LEVEL 27 MMOL/L (20-31); CHLORIDE LEVEL 102 MMOL/L (98-107); CREATININE FOR GFR 1.03 MG/DL (0.70-1.30); GLOMERULAR FILTRATION RATE 89.6 (>60); POTASSIUM SERUM 4.4 MMOL/L (3.5-5.1); SODIUM LEVEL 141 MMOL/L (136-145); VITAMIN B12 LEVEL 521 PG/ML (211-911)
== END ==
LOC: M WUC 10:25
PROVIDERS: ATTEND Family Medicine
DX: I10 Essential (primary) hypertension (principal); E78.5 Hyperlipidemia, unspecified; E80.4 Gilbert syndrome; D50.9 Iron deficiency anemia, unspecified